=== PATIENT | female | born 1960 | race Caucasian/White ===

== ENCOUNTER 2018-03-25 10:46 | Emergency (ER) | payer OTHER ==
--- NOTE | 2018-03-25 11:58 | RAD ---
LEFT FOOT 3 VIEWS: Date: 03/25/18 HISTORY: Second toe pain status post fall. FINDINGS: There appears to be some soft tissue injury to the second toe. I do not see a definite underlying fra cture. 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 there is some soft tissue swelling on the dorsum of the foot. Calcaneal spurs are noted. IMPRESSION: No evidence of fracture. POS: [facility]
--- NOTE | 2018-03-25 11:59 | RAD ---
PORTABLE CHEST: Date: 03/25/18 HISTORY: Syncope, slurred speech, headache. FINDINGS: Heart size and mediastinum are within normal limits, considering the portable technique, heart size b eing upper limits of normal. Lungs appear clear of any infiltrative process. There are no signs of fa ilure. IMPRESSION: Heart size upper limits of normal. No acute findings. POS: [facility]
--- NOTE | 2018-03-25 12:05 | CT ---
HEAD CT WITHOUT CONTRAST: Date: 03/25/18 HISTORY: Frequent falls. Dizziness. Headache. FINDINGS: No parenchymal hemorrhage. No extra-axial hematoma. No midline shift. Basilar cisterns are patent. Ag e-appropriate atrophy. Cortical newton-white matter differentiation preserved. Ventricles and sulci are patent and symmetric. Calvarium is intact. Adequate aeration of the sinuses and mastoid air cells. IMPRESSION: No acute intracranial process. POS: [facility]
[2018-03-25 12:18] LABS: #Basophils 0.1 thou/uL (0.0-0.2); #Eosinphils 0.3 thou/uL (0.0-0.7); #Lymphocytes 3.3 thou/uL (1.20-3.40); #Monocytes 0.5 thou/uL (0.11-0.59); #Neutrophils 7.2 thou/uL (1.40-6.50); %Eosinophils 2.5 % (0.0-10.0); %Lymphocytes 29.1 % (21.0-51.0); %Monocytes 4.5 % (0.0-10.0); %Neutrophils 62.9 % (42.0-75.0); Hemoglobin 14.2 g/dL (12.0-16.0); Mean Corpuscular HGB CONC 31.1 g/dL (32.0-36.0); Mean Corpuscular Hemoglobin 28.6 pg (27.0-31.0); Mean Corpuscular Volume 91.9 fL (78.0-98.0); Mean Platelet Volume 8.4 fL (7.4-10.4); Platelet Count 273 thou/uL (130-400); RBC Distribution Width 12.7 % (11.5-14.5); Red Blood Cell (RBC) Count 4.96 mill/uL (4.20-5.40); White Blood Cell (WBC) Count 11.4 thou/uL (4.8-10.8)
[2018-03-25 12:40] LABS: ALT (SGPT) 39 U/L (8-55); AST (SGOT) 47 U/L (5-34); Albumin 4.2 g/dL (3.5-5.0); Alkaline Phosphatase 122 U/L (40-150); Anion Gap 14 mmol/L (10-20); BUN (Urea Nitrogen) 17 mg/dL (9.8-20.1); Bilirubin, Total 0.6 mg/dL (0.2-1.2); Calc. Creatinine Clearance 0 mL/min (70-130); Calcium 9.1 mg/dL (7.8-10.44); Carbon Dioxide 27 mmol/L (22-29); Chloride 99 mmol/L (98-107); Estimated GFR-MDRD 62; Glucose 312 mg/dL (70-105); Potassium 3.7 mmol/L (3.5-5.1); Protein, Total 7.2 g/dL (6.0-8.3); Sodium 136 mmol/L (136-145)
[2018-03-25] MEDS ORDERED: Potassium Chloride 20 MEQ TAB ONE (13:18)
[2018-03-25] MEDS ORDERED: Insulin Regular 300 UNITS/3 ML VIAL ONE (13:18)
== END 2018-03-25 19:20 | disposition home or self-care (01) ==
LOC: ERS 10:46
DX: R45.851 Suicidal ideations (principal); L03.90 Cellulitis, unspecified; E78.5 Hyperlipidemia, unspecified; E11.40 Type 2 diabetes mellitus with diabetic neuropathy, unspecified; I11.0 Hypertensive heart disease with heart failure; I50.9 Heart failure, unspecified; J44.9 Chronic obstructive pulmonary disease, unspecified; F32.9 Major depressive disorder, single episode, unspecified; I25.10 Atherosclerotic heart disease of native coronary artery without angina pectoris; Z79.899 Other long term (current) drug therapy
CPT/HCPCS: 36415; 70450; 71045; 80053; 85025; 93005; 96374; J1815